=== PATIENT | female | born 2000 | race Two or more races ===

== ENCOUNTER 2023-03-19 18:58 | Emergency (ER) | payer OTHER ==
[~2023-03-19] VITALS: Ht 149.9 cm; Wt 55.0 kg
[2023-03-19 19:08] VITALS: TEMP 98
[2023-03-19 21:32] VITALS: BP 144/87; PULSE 78; RESP 18
== END 2023-03-19 23:14 | disposition home or self-care (01) ==
LOC: EMS 19:03
DX: G43.909 Migraine, unspecified, not intractable, without status migrainosus (principal); F12.90 Cannabis use, unspecified, uncomplicated
CPT/HCPCS: 99282; Z7502